=== PATIENT | male | born 1950 | race Two or more races ===

== ENCOUNTER 2018-12-12 16:12 | Inpatient (IN) | payer MEDICARE, MEDICAID ==
[~2018-12-12] VITALS: Ht 160 cm; Wt 61.2 kg
[2018-12-12] MEDS ORDERED: ESCI10TA PO (16:21)
[2018-12-12] MEDS ORDERED: TAMS-3 PO (16:21)
[2018-12-12] MEDS ORDERED: PANT20TA2 PO (16:21)
[2018-12-12] MEDS ORDERED: AMLO10TA7 PO (16:21)
[2018-12-12] MEDS ORDERED: CLOP75TA15 PO (16:21)
[2018-12-12] MEDS ORDERED: FINA5TAB11 PO (16:21)
[2018-12-12] MEDS ORDERED: ATOR40TA PO (16:21)
[2018-12-12] MEDS ORDERED: SENN-168 PO (16:21)
[2018-12-12] MEDS ORDERED: HYDR25TA4 PO (16:21)
[2018-12-12] MEDS ORDERED: DOCU-141 PO (16:21)
[2018-12-12 16:41] LABS: BASOPHILS # (AUTO) 0.1 K/uL (0.0-8.0); BASOPHILS % (AUTO) 0.8 % (0.0-2.0); EOSINOPHILS # (AUTO) 0.2 K/uL (0.0-0.7); HEMATOCRIT 38.3 % (36.7-47.1); HEMOGLOBIN 12.8 g/dL (12.5-16.3); LYMPHOCYTES # (AUTO) 1.3 K/uL (20.0-40.0); LYMPHOCYTES % (AUTO) 15.5 % (20.5-51.5); MEAN CORPUSCULAR HEMOGLOBIN 28.8 uug (23.8-33.4); MEAN CORPUSCULAR HGB CONC 33 g/dL (32.5-36.3); MEAN CORPUSCULAR VOLUME 86.3 fL (73.0-96.2); MONOCYTES # (AUTO) 0.7 K/uL (2.0-10.0); MONOCYTES % (AUTO) 8.6 % (0.0-11.0); NEUTROPHILS # (AUTO) 5.9 K/uL (1.8-8.9); NEUTROPHILS % (AUTO) 73.1 % (38.5-71.5); PLATELET COUNT (AUTO) 285 K/uL (152-348); RED BLOOD CELL COUNT(AUTO) 4.43 MIL/uL (4.06-5.63); WHITE BLOOD COUNT (AUTO) 8.1 K/uL (3.6-10.2)
[2018-12-12 16:50] LABS: CARBON DIOXIDE 30 mmol/L (21-32); CHLORIDE 105 mmol/L (98-107); GLUCOSE 99 mg/dL (74-106); POTASSIUM 3.2 mmol/L (3.5-5.1); UREA NITROGEN, BLOOD 17 mg/dL (7-18)
[2018-12-12 16:55] LABS: ETHANOL < 3 MG/DL (0-0)
[2018-12-12 17:00] LABS: ALANINE AMINOTRANSFERASE 33 U/L (16-63); ALKALINE PHOSPHATASE 76 U/L (50-136); ASPARTATE AMINOTRANSFERASE 18 U/L (15-37); BILIRUBIN,DIRECT 0.3 mg/dL (0.0-0.2); BILIRUBIN,TOTAL 0.9 mg/dL (0.2-1.0); TOTAL PROTEIN, SERUM 7.1 g/dL (6.4-8.2)
[2018-12-12 17:01] LABS: ACETAMINOPHEN < 10.0 ug/mL (10-30)
[2018-12-12 17:03] LABS: THYROID STIMULATING HORMONE 2.558 mIU/mL (0.358-3.740)
--- NOTE | 2018-12-12 17:24 | NUR ---
Pt medicllay cleared by Dr Amin, called PET director of vocational training, Reed Diego.
[2018-12-12 17:33] LABS: *BILIRUBIN,URIN NEGATIVE (NEGATIVE); *BLOOD, URINE NEGATIVE (NEGATIVE); *CLARITY,URINE CLEAR (CLEAR); *COLOR,URINE YELLOW (YELLOW); *KETONES,URINE NEGATIVE (NEGATIVE); LEUKOCYTE ESTERASE ,URINE NEGATIVE (NEGATIVE); NITRITE, URINE NEGATIVE (NEGATIVE); UGLUCOSE NEGATIVE (NEGATIVE)
[2018-12-12 17:50] LABS: *AMPHETAMINE, URINE NEGATIVE (NEGATIVE); *BARBITURATE, URINE NEGATIVE (NEGATIVE); *CANNABINOID, URINE NEGATIVE (NEGATIVE); *COCCAINE, URINE NEGATIVE (NEGATIVE); *OPIATE, URINE NEGATIVE (NEGATIVE); *PHENCYCLIDINE SCREEN,URINE NEGATIVE (NEGATIVE)
--- NOTE | 2018-12-12 17:56 | NUR ---
Reed Diego LCSW, at the bedside for Psych eval.
--- NOTE | 2018-12-12 18:30 | NUR ---
Pt placed on 5150 hold fot GD, by CINDI Diego.
--- NOTE | 2018-12-12 18:39 | NUR ---
Patient is resting comfortably in bed with eyes closed, NAD noted.
--- NOTE | 2018-12-12 20:07 | NUR ---
Pt. admitted to MHU , under care of Dr. Beauchamp/Anette. Pt on 5150 hold GD. Belongs List completed. MRSA swab done.
[2018-12-12] MEDS ORDERED: MAG HYDROX/AL HYDROX/SIMETH 30 ML LIQUID UDC PO PRN (20:30)
[2018-12-12] MEDS ORDERED: MAGNESIUM HYDROXIDE 30 ML LIQUID UDC PO PRN (20:30)
[2018-12-12] MEDS ORDERED: ACETAMINOPHEN 325 MG TABLET PO PRN (20:30)
[2018-12-12 20:35] VITALS: BP 148/61
--- NOTE | 2018-12-12 21:00 | NUR ---
Admission Note: 68 y.o. male (Mosotho speaking) brought to MHU from ER via gurney accompanied by ER staff. Pt admitted on a 5150 for GD under the care of Dr Cheema and Joseph with a dx of Psychosis. According to the 5150, the Pt, a resident of [facility], began touching staff and residents inappropriately. Pt disrobed in front of his roommates and began to masturbate. Pt has no recall of events and is a poor historian. Upon admission to the unit VS stable, denies pain. Upon face to face evaluation, Pt is pleasant, but confused, disoriented, and forgetful. A+Ox1 to Pt exhibits some sexually inappropriate behavior, as he made several attempts to go into a female room while the Pts were sleeping. After Pt was redirected away from the female room, Pt wandered back and stared at the sleeping female Pts until he was again redirected to his room and educated regarding the unit rules and expectations. Pt stated, I dont know when asked why he is here, and responded that it was June 1998 when asked the date. Affect is flat, speech is pressured, and mood is anxious and somewhat restless. Denies SI/HI/AH/VH. Pt has very poor insight and impaired judgment, and is cognitively impaired. Pt gives irrelevant non-sensical answers to assessment questions, and is unable to provide meaningful information. Paperwork co-signed with staff, Pt unable to comprehend what he is signing. With Pts permission, attempts were made to contact Pts romeo Damon and his bother Igor number was a Dr office and Mary Beth voicemail box is full. Skin assessment completed with licensed staff-skin C/D/I. Medical h/o HTN, CVA, BPH, GERD, dementia, and muscle weakness. Dr Cheema and Dr Ruiz notified of admission, meds reconciled, orders received, NKA. Pt belongings inventoried, contraband placed in unit locker. Patient Rights handbook and Advisement given to Pt, rights and unit rules/expectations explained. Pt oriented to the unit, the phone, the restrooms, and his room. Q 15 minute rounding initiated for safety. Translation provided by HENRIETTA Angulo
[2018-12-12] MEDS ORDERED: POTASSIUM CHLORIDE 20 MEQ TAB.PRT.SR PO ONE (22:30)
[2018-12-12] MEDS ORDERED: SENNOSIDES 1 TABLET PO PRN (22:45)
--- NOTE | 2018-12-12 22:45 | NUR ---
ER gave report at 1999 to charge accounts audit clerk. Pt noted to have a K+ of 3.2. ER refused to replace upon medically clearing the Pt to MHU. Dr Barahona (covering for [facility]) notified of admission and K+ level. 40 mEq K-Dur ordered and administered. AM labs ordered. Pt in no acute physical distress, will continue to monitor.
[2018-12-12] MEDS: ATORVASTATIN 40 MG TABLET PO SCH (23:31)
[2018-12-12] MEDS: AMLODIPINE 10 MG TABLET PO SCH (23:31)
[2018-12-13 07:30] VITALS: BP 126/52
[2018-12-13] MEDS: LORAZEPAM 0.5 MG TABLET PO PRN (08:48)
[2018-12-13] MEDS: FINASTERIDE 5 MG TABLET PO SCH (09:20)
[2018-12-13] MEDS: DOCUSATE SODIUM 100 MG CAPSULE PO SCH ×2 (09:20→17:00)
[2018-12-13] MEDS: TAMSULOSIN HCL 0.4 MG CAP.SR.24H PO SCH ×2 (09:20→17:00)
[2018-12-13] MEDS: HYDROCHLOROTHIAZIDE 25 MG TABLET PO SCH (09:21)
[2018-12-13] MEDS: CLOPIDOGREL 75 MG TABLET PO SCH (09:21)
[2018-12-13] MEDS: PANTOPRAZOLE SODIUM 40 MG TABLET.DR PO SCH (11:31)
[2018-12-13] MEDS: POTASSIUM CHLORIDE 10 MEQ TAB.PRT.SR PO SCH (11:31)
[2018-12-13 16:22] VITALS: BP 119/50
[2018-12-13 20:00] VITALS: BP 176/65
[2018-12-13] MEDS: AMLODIPINE 10 MG TABLET PO SCH ×2 (21:00→21:10)
[2018-12-13] MEDS: ATORVASTATIN 40 MG TABLET PO SCH ×2 (21:00→21:11)
[2018-12-13] MEDS: OXCARBAZEPINE 150 MG TABLET PO SCH ×2 (21:00→21:11)
[2018-12-13] MEDS: TEMAZEPAM 7.5 MG CAPSULE PO PRN (22:44)
[2018-12-14] MEDS: PANTOPRAZOLE SODIUM 40 MG TABLET.DR PO SCH (06:30)
--- NOTE | 2018-12-14 06:40 | NUR ---
Received Pt in his room awake. Pt is sexually inappropriate and was noted to be masturbating during assessment. Pt was asked to stop several times, but Pt refused and became irritable and agitated after being asked to stop multiple times. Pt yelled at staff in greenlandic to get out of his room, and the assessment was terminated. Resistant to care, uncooperative with staff direction, and non-compliant with HS medications. BP elevated, Pt refused BP meds, all other VS stable. No c/o pain throughout the shift.
[2018-12-14 07:30] VITALS: BP 155/46
[2018-12-14] MEDS: HYDROCHLOROTHIAZIDE 25 MG TABLET PO SCH ×2 (09:00→11:48)
[2018-12-14] MEDS: FINASTERIDE 5 MG TABLET PO SCH ×2 (09:00→11:47)
[2018-12-14] MEDS: DOCUSATE SODIUM 100 MG CAPSULE PO SCH ×3 (09:00→18:15)
[2018-12-14] MEDS: TAMSULOSIN HCL 0.4 MG CAP.SR.24H PO SCH ×3 (09:00→18:15)
[2018-12-14] MEDS: POTASSIUM CHLORIDE 10 MEQ TAB.PRT.SR PO SCH ×2 (09:00→11:48)
[2018-12-14] MEDS: OXCARBAZEPINE 150 MG TABLET PO SCH ×3 (09:00→21:00)
[2018-12-14] MEDS: CLOPIDOGREL 75 MG TABLET PO SCH ×2 (09:00→11:47)
[2018-12-14 16:00] VITALS: BP 157/64
--- NOTE | 2018-12-14 17:01 | NUR ---
Initial discharge plan: The patient is a long-term resident at [facility] [[address] [facility] [address]; ]. Per admission coordinatorGayatri at [facility] the patient may return there once ready for discharge. SW Proofreader / MHU SW will continue to collaborate with interdisciplinary team to ensure safe and proper discharge planning.
[2018-12-14 20:00] VITALS: BP 106/55
[2018-12-14] MEDS ORDERED: QUETIAPINE FUMARATE 25 MG TABLET PO SCH (20:00)
[2018-12-14] MEDS: ATORVASTATIN 40 MG TABLET PO SCH (21:00)
[2018-12-14] MEDS: AMLODIPINE 10 MG TABLET PO SCH (21:06)
[2018-12-15] MEDS: PANTOPRAZOLE SODIUM 40 MG TABLET.DR PO SCH (06:18)
[2018-12-15 07:30] VITALS: BP 163/82
[2018-12-15] MEDS: POTASSIUM CHLORIDE 10 MEQ TAB.PRT.SR PO SCH (09:03)
[2018-12-15] MEDS: HYDROCHLOROTHIAZIDE 25 MG TABLET PO SCH (09:04)
[2018-12-15] MEDS: TAMSULOSIN HCL 0.4 MG CAP.SR.24H PO SCH ×2 (09:04→18:16)
[2018-12-15] MEDS: DOCUSATE SODIUM 100 MG CAPSULE PO SCH ×2 (09:04→18:15)
[2018-12-15] MEDS: CLOPIDOGREL 75 MG TABLET PO SCH (09:04)
[2018-12-15] MEDS: OXCARBAZEPINE 150 MG TABLET PO SCH ×3 (09:04→21:00)
[2018-12-15 16:00] VITALS: BP 138/49
[2018-12-15] MEDS: QUETIAPINE FUMARATE 25 MG TABLET PO SCH ×2 (20:00→20:35)
[2018-12-15] MEDS: ATORVASTATIN 40 MG TABLET PO SCH (20:36)
[2018-12-15] MEDS: AMLODIPINE 10 MG TABLET PO SCH (20:37)
--- NOTE | 2018-12-15 22:28 | NUR ---
Patient refused to allow nail specialist to check VS. Also refused to take any medication . Multiple attempts made by different nurses. When standing close to patient , he would swing at nurse in an attempt to hit. At this time patient is quiet in his bed. Continuing to monitor patient for inappropriate behaviors .
[2018-12-16] MEDS: PANTOPRAZOLE SODIUM 40 MG TABLET.DR PO SCH (05:59)
--- NOTE | 2018-12-16 06:00 | NUR ---
Again patient is refusing to take his medication. Charge nurse tried to encourage him in South African . Patient still refused.
[2018-12-16 07:30] VITALS: BP 157/75
[2018-12-16] MEDS: TAMSULOSIN HCL 0.4 MG CAP.SR.24H PO SCH ×2 (09:43→17:21)
[2018-12-16] MEDS: CLOPIDOGREL 75 MG TABLET PO SCH (09:43)
[2018-12-16] MEDS: DOCUSATE SODIUM 100 MG CAPSULE PO SCH ×2 (09:43→17:21)
[2018-12-16] MEDS: POTASSIUM CHLORIDE 10 MEQ TAB.PRT.SR PO SCH (09:43)
[2018-12-16] MEDS: HYDROCHLOROTHIAZIDE 25 MG TABLET PO SCH (09:44)
[2018-12-16] MEDS: OXCARBAZEPINE 150 MG TABLET PO SCH ×3 (09:45→20:41)
[2018-12-16] MEDS: FINASTERIDE 5 MG TABLET PO SCH (09:45)
[2018-12-16 16:00] VITALS: BP 119/71
[2018-12-16 20:19] VITALS: BP 160/74
[2018-12-16] MEDS: ATORVASTATIN 40 MG TABLET PO SCH (20:41)
[2018-12-16] MEDS: QUETIAPINE FUMARATE 25 MG TABLET PO SCH (20:41)
[2018-12-16] MEDS: AMLODIPINE 10 MG TABLET PO SCH (20:42)
--- NOTE | 2018-12-17 03:42 | NUR ---
Patient much more compliant tonight. Took medications without any resistance. No distress noted.
[2018-12-17] MEDS: PANTOPRAZOLE SODIUM 40 MG TABLET.DR PO SCH (06:01)
[2018-12-17 07:30] VITALS: BP 109/58
[2018-12-17] MEDS: LORAZEPAM 0.5 MG TABLET PO PRN ×2 (08:42→22:20)
[2018-12-17] MEDS: OXCARBAZEPINE 150 MG TABLET PO SCH ×3 (09:06→20:15)
[2018-12-17] MEDS: DOCUSATE SODIUM 100 MG CAPSULE PO SCH ×2 (09:06→16:33)
[2018-12-17] MEDS: HYDROCHLOROTHIAZIDE 25 MG TABLET PO SCH (09:07)
[2018-12-17] MEDS: POTASSIUM CHLORIDE 10 MEQ TAB.PRT.SR PO SCH (09:07)
[2018-12-17] MEDS: TAMSULOSIN HCL 0.4 MG CAP.SR.24H PO SCH ×2 (09:07→16:33)
[2018-12-17] MEDS: CLOPIDOGREL 75 MG TABLET PO SCH (09:07)
[2018-12-17] MEDS: FINASTERIDE 5 MG TABLET PO SCH (09:09)
[2018-12-17 16:40] VITALS: BP 136/111
[2018-12-17] MEDS: QUETIAPINE FUMARATE 25 MG TABLET PO SCH (20:15)
[2018-12-17] MEDS: AMLODIPINE 10 MG TABLET PO SCH (20:15)
[2018-12-17] MEDS: ATORVASTATIN 40 MG TABLET PO SCH (20:15)
[2018-12-17 20:45] VITALS: BP 143/68
[2018-12-18] MEDS: PANTOPRAZOLE SODIUM 40 MG TABLET.DR PO SCH (06:18)
[2018-12-18 07:30] VITALS: BP 138/58
[2018-12-18] MEDS: TAMSULOSIN HCL 0.4 MG CAP.SR.24H PO SCH ×2 (09:45→16:55)
[2018-12-18] MEDS: CLOPIDOGREL 75 MG TABLET PO SCH (09:45)
[2018-12-18] MEDS: POTASSIUM CHLORIDE 10 MEQ TAB.PRT.SR PO SCH (09:45)
[2018-12-18] MEDS: OXCARBAZEPINE 150 MG TABLET PO SCH ×3 (09:45→21:33)
[2018-12-18] MEDS: FINASTERIDE 5 MG TABLET PO SCH (09:45)
[2018-12-18] MEDS: DOCUSATE SODIUM 100 MG CAPSULE PO SCH ×2 (09:45→16:55)
[2018-12-18] MEDS: HYDROCHLOROTHIAZIDE 25 MG TABLET PO SCH (09:46)
[2018-12-18] MEDS: LORAZEPAM 0.5 MG TABLET PO PRN (10:25)
--- NOTE | 2018-12-18 12:09 | NUR ---
GPS: Nursing Notes: Chemical Restraint: Patient is awake and responding to his name, impaired judgment, poor anger management, resistant with nursing care, disrobing , pulling his pant down, sexually inappropriate behavior by constantly putting his hand between his leg when his pant is down, unable to be redirected, restless behavior, trying to hit staff with fww by raising it toward staff, loud, pressured and angry speech toward staff, violent outburst without provocation, confused, paranoid behavior, talking incoherently, setting limits, redirected and reoriented during shift, but continue to be restless, Dr. Moore covering for Dr. Cheema present in the unit, ordered: Zyprexa 5mg IM STAT, medication IM given at this time, Respiration 18, continue to monitor for safety, continue with treatment plan.
[2018-12-18] MEDS ORDERED: OLANZAPINE 10 MG VIAL IM ONE (12:15)
--- NOTE | 2018-12-18 12:39 | NUR ---
GPS: Nursing Notes: Reassessment of Chemical Restraint: Patient is awake and responding to his name, resistant with nursing care, but not striking out, impaired judgment, confused, disorganized, suspicious, guarded, poor impulse control, medication IM was helpful, continue to monitor for safety, assisted with ADL's, continue to pull his pants down, but keeping his gown on, respiration 18, continue with treatment plan.
[2018-12-18 16:39] VITALS: BP 96/55
[2018-12-18 20:23] VITALS: BP 153/82
[2018-12-18] MEDS: QUETIAPINE FUMARATE 25 MG TABLET PO SCH (21:33)
[2018-12-18] MEDS: ATORVASTATIN 40 MG TABLET PO SCH (21:33)
[2018-12-18] MEDS: AMLODIPINE 10 MG TABLET PO SCH (21:35)
--- NOTE | 2018-12-18 22:44 | NUR ---
RECEIVED PATIENT LYING IN BED AND WAS RESPONSIVE TO HIS NAME.HE APPEARED SUSPICIOUS,GUARDED AND CONFUSED.HE COULD BE SEEN PICKING HIS NOSE AND SMALL AMOUNT OF BLEEDING NOTED. CLEANED AND MADE COMFORTABLE IN BED.HE TOOK HIS MEDS WITH SOME AMOUNT OF PERSUASION.COULD NOT ENGAGE IN ANY MEANINGFUL INTERACTION. FREQUENT VISUAL CHECKS MADE TO HIS ROOM FOR SAFETY. WILL CONTINUE TO MONITOR.
[2018-12-19] MEDS: PANTOPRAZOLE SODIUM 40 MG TABLET.DR PO SCH (06:22)
--- NOTE | 2018-12-19 06:37 | NUR ---
SLEPT APPROX.7;15HRS.BED BATH GIVEN AND MADE COMFORTABLE IN BED.
[2018-12-19 07:30] VITALS: BP 145/55
[2018-12-19] MEDS: OXCARBAZEPINE 150 MG TABLET PO SCH ×3 (09:58→20:37)
[2018-12-19] MEDS: POTASSIUM CHLORIDE 10 MEQ TAB.PRT.SR PO SCH (09:58)
[2018-12-19] MEDS: HYDROCHLOROTHIAZIDE 25 MG TABLET PO SCH (09:58)
[2018-12-19] MEDS: CLOPIDOGREL 75 MG TABLET PO SCH (09:58)
[2018-12-19] MEDS: FINASTERIDE 5 MG TABLET PO SCH (09:58)
[2018-12-19] MEDS: TAMSULOSIN HCL 0.4 MG CAP.SR.24H PO SCH ×2 (09:58→17:46)
[2018-12-19] MEDS: DOCUSATE SODIUM 100 MG CAPSULE PO SCH ×2 (09:58→17:46)
--- NOTE | 2018-12-19 10:44 | NUR ---
Discharge Plannin12/16/2018 color worker received phone call from Social abram Crenshaw at [facility] [ ], stating that patient's family would like him to go to a SNF in [facility]. color worker agreed to call family to discuss possibility of new SNF placement, but confirmed with Den that patient would return to [facility] if there was no other accepting facility. Den agreed. 12/19/2018: color worker called patient Marisol walters, regarding patient placement. Per Marisol, her and her family would like patient to be in a SNF closer to them which is in the [facility] area. color worker informed Marisol that this show card writer would look for new placement, but cannot guarantee that patient will be accepted to facilitates. Marisol expressed understanding and agreed to patient returning to [facility] if no other placement found. color worker then called [facility] back and spoke with Gayatri, coordinator of rehabilitation services. color worker informed Gayatri that family would like new placement for patient near [facility], but are agreeable with patient returning to [facility] if no other placement can be found. Gayatri is in agreement with plan and confirms patient will be able to return if no other placement found. color worker inquired if Den social work specialist, had already reached out to facilities in [facility]. Per Gayatri, she was unsure and stated she would have Den call this show card writer. color worker awaiting call back from Den. In the meantime, social work specialist has faxed SNF referrals to the following facilities: [facility] [[address] [place] [address]; ; regional office coordinator: Niki] [facility] [[address] [place] [address]; ; regional office coordinator: Hollie] [facility] [[address] [place] [address]; ; regional office coordinator: Carolina] color worker currently awaiting call back's from facilities on admission status. color worker also reached out to [facility] [[address] [address]; ], but was informed by Yanira, RN pilot plant supervisor, that they currently had no male bed availability. color worker reached out to [facility] [ [address] [place] [address]; ] and spoke with Marisol, healthcare receptionist, who states they currently have no male bed availability. Addendum: 12/21/18 at 1312 by MARIO HUTCHINS SW color worker followed up with the following facilities: [facility] [[address] [place] [address]; ; regional office coordinator: Niki]. Per Niki, the facility cannot accept patient due to behaviors. [facility] [[address] [place] [address]; ; regional office coordinator: Hollie]. Per Hollie, the facility cannot accept patient due to behaviors. [facility] [[address] [place] [address]; ; regional office coordinator: Carolina]. Per Carolina, facility cannot accept patient due to behaviors. color worker to follow-up with family.
--- NOTE | 2018-12-19 11:55 | NUR ---
Firearms report: disc pad knockout worker completed and submitted a [employer] firearms report for a 5250 GD certification.
[2018-12-19 16:07] VITALS: BP 131/48
[2018-12-19] MEDS: QUETIAPINE FUMARATE 25 MG TABLET PO SCH ×2 (17:46→20:37)
[2018-12-19 20:00] VITALS: BP 125/64
[2018-12-19] MEDS: AMLODIPINE 10 MG TABLET PO SCH (20:37)
[2018-12-19] MEDS: ATORVASTATIN 40 MG TABLET PO SCH (20:37)
[2018-12-20] MEDS: PANTOPRAZOLE SODIUM 40 MG TABLET.DR PO SCH (06:01)
[2018-12-20 07:30] VITALS: BP 151/51
[2018-12-20] MEDS: OXCARBAZEPINE 150 MG TABLET PO SCH ×3 (09:33→20:20)
[2018-12-20] MEDS: TAMSULOSIN HCL 0.4 MG CAP.SR.24H PO SCH ×2 (09:33→16:17)
[2018-12-20] MEDS: POTASSIUM CHLORIDE 10 MEQ TAB.PRT.SR PO SCH (09:33)
[2018-12-20] MEDS: QUETIAPINE FUMARATE 25 MG TABLET PO SCH ×3 (09:33→20:20)
[2018-12-20] MEDS: DOCUSATE SODIUM 100 MG CAPSULE PO SCH ×2 (09:33→16:17)
[2018-12-20] MEDS: CLOPIDOGREL 75 MG TABLET PO SCH (09:33)
[2018-12-20] MEDS: HYDROCHLOROTHIAZIDE 25 MG TABLET PO SCH (09:34)
[2018-12-20] MEDS: FINASTERIDE 5 MG TABLET PO SCH (09:35)
[2018-12-20 15:42] VITALS: BP 135/66
[2018-12-20] MEDS: ATORVASTATIN 40 MG TABLET PO SCH (20:20)
[2018-12-20] MEDS: AMLODIPINE 10 MG TABLET PO SCH (20:20)
[2018-12-20 20:54] VITALS: BP 149/71
[2018-12-20] MEDS: TEMAZEPAM 7.5 MG CAPSULE PO PRN (22:30)
--- NOTE | 2018-12-20 22:30 | NUR ---
PATIENT RESTLESS AND AMBULATING BACK AND FORTH IN HALLWAY, TRYING TO ESCAPE OUT THE FRONT DOOR. PATIENT REDIRECTED BACK TO ROOM AND GIVEN RESTORIL 7.5MG PO PRN FOR SLEEP. WILL CONTINUE TO MONITOR AND ASSESS.
--- NOTE | 2018-12-20 23:30 | NUR ---
PATIENT ASLEEP. BED ALARM ON. NO RESP. DISTRESS NOTED. RESTORIL EFFECTIVE. WILL CONTINUE TO MONITOR AND ASSESS.
[2018-12-21] MEDS: PANTOPRAZOLE SODIUM 40 MG TABLET.DR PO SCH (06:14)
[2018-12-21 07:30] VITALS: BP 136/60
[2018-12-21] MEDS: QUETIAPINE FUMARATE 25 MG TABLET PO SCH ×5 (08:00→20:32)
[2018-12-21] MEDS: TAMSULOSIN HCL 0.4 MG CAP.SR.24H PO SCH ×3 (09:00→16:55)
[2018-12-21] MEDS: DOCUSATE SODIUM 100 MG CAPSULE PO SCH ×3 (09:00→16:55)
[2018-12-21] MEDS: OXCARBAZEPINE 150 MG TABLET PO SCH ×4 (09:00→20:32)
[2018-12-21] MEDS: POTASSIUM CHLORIDE 10 MEQ TAB.PRT.SR PO SCH (09:23)
[2018-12-21] MEDS: CLOPIDOGREL 75 MG TABLET PO SCH (09:23)
[2018-12-21] MEDS: HYDROCHLOROTHIAZIDE 25 MG TABLET PO SCH (09:24)
[2018-12-21] MEDS: FINASTERIDE 5 MG TABLET PO SCH (09:29)
--- NOTE | 2018-12-21 11:05 | NUR ---
REFUSING TO TAKE MORNING MEDS AND PRN. SEVERAL ATTEMPTS BY MYSELF AND ONE OTHER RN.
[2018-12-21] MEDS: LORAZEPAM 0.5 MG TABLET PO PRN ×2 (15:22→21:41)
[2018-12-21 16:00] VITALS: BP 130/70
[2018-12-21 19:59] VITALS: BP 142/59
--- NOTE | 2018-12-21 20:00 | NUR ---
PATIENT ALERT TO SELF ONLY. VERY CONFUSED. DISORIENTATED AND EASILY AGITATED. WALKING UP AND DOWN HALLWAY AND STANDING AT DOOR TRYING TO ELOPE. WILL CONTINUE TO CLOSELY MONITOR AND ASSESS.
[2018-12-21] MEDS: AMLODIPINE 10 MG TABLET PO SCH (20:31)
[2018-12-21] MEDS: ATORVASTATIN 40 MG TABLET PO SCH (20:32)
--- NOTE | 2018-12-21 21:30 | NUR ---
PATIENT VERY RESTLESS. PATIENT GIVEN RESTORIL 7.5MG PO PRN FOR SLEEP. BED ALARM ON. WILL CONTINUE TO CLOSELY MONITOR.
[2018-12-21] MEDS: TEMAZEPAM 7.5 MG CAPSULE PO PRN (21:32)
[2018-12-21] MEDS ORDERED: OLANZAPINE 10 MG VIAL IM ONE (21:45)
--- NOTE | 2018-12-21 22:00 | NUR ---
PATIENT STILL AWAKE, TRYING TO GET OOB. VERY AGITATED AND EASILY AGGRESSIVE WHEN APPROACHED AND REDIRECTED. PATIENT GIVEN ATIVAN 0.5MG PO PRN. BED ALARM ON FOR SAFETY. WILL CONTINUE TO MONITOR AND ASSESS.
--- NOTE | 2018-12-21 22:30 | NUR ---
GPS: Nursing Notes: Chemical Restraint: Patient is awake with impaired judgment, poor anger management, resistant with nursing care, directed away from the door several times, unable to be redirected, patient became more aggressive with restless behavior, trying to hit staff with fww by raising it toward staff, loud, pressured and angry speech toward staff, violent outburst without provocation, confused, paranoid behavior, talking incoherently, Dr. Cuellar covering for Dr. Cheema contacted, order: Zyprexa 5mg IM STAT, medication IM administered as ordered, vital signs stable, will continue to monitor.
--- NOTE | 2018-12-22 03:42 | NUR ---
GPS: Nursing Notes: Reassessment of Chemical Restraint: Patient continued to display restless behavior, slept 30 minutes. Continue with treatment plan and observation for safety.
[2018-12-22] MEDS: PANTOPRAZOLE SODIUM 40 MG TABLET.DR PO SCH (06:08)
[2018-12-22 07:30] VITALS: BP 120/69
[2018-12-22] MEDS: OXCARBAZEPINE 150 MG TABLET PO SCH ×3 (08:16→21:00)
[2018-12-22] MEDS: DOCUSATE SODIUM 100 MG CAPSULE PO SCH ×2 (08:16→17:00)
[2018-12-22] MEDS: QUETIAPINE FUMARATE 25 MG TABLET PO SCH ×5 (08:16→21:00)
[2018-12-22] MEDS: TAMSULOSIN HCL 0.4 MG CAP.SR.24H PO SCH ×3 (08:16→17:42)
[2018-12-22] MEDS: POTASSIUM CHLORIDE 10 MEQ TAB.PRT.SR PO SCH (08:16)
[2018-12-22] MEDS: HYDROCHLOROTHIAZIDE 25 MG TABLET PO SCH (08:16)
[2018-12-22] MEDS: CLOPIDOGREL 75 MG TABLET PO SCH (08:16)
[2018-12-22] MEDS: FINASTERIDE 5 MG TABLET PO SCH (08:17)
--- NOTE | 2018-12-22 09:00 | NUR ---
Received patient in reymundo-chair, would try to get out of chair. Patient still confused and would talk to himself at times. Still needs redirection.
[2018-12-22 16:23] VITALS: BP 136/61
--- NOTE | 2018-12-22 17:20 | NUR ---
Tried to assist patient back to bed. Patient would try to get out of bed and be restless when in bed. Assisted patient back to reymundo-chair.
[2018-12-22 20:54] VITALS: BP 127/61
[2018-12-22] MEDS: AMLODIPINE 10 MG TABLET PO SCH (21:00)
[2018-12-22] MEDS: ATORVASTATIN 40 MG TABLET PO SCH (21:00)
--- NOTE | 2018-12-22 22:00 | NUR ---
received to care, up in reymundo chair, appearing sedated, non interactive, excessive salivation noted. medications were held, due to sedation, and inability to take anything by mouth, at this time. assisted to bed, without any problems. as of 2199, he appears to be asleep, in bed. no distress noted.
[2018-12-23] MEDS: PANTOPRAZOLE SODIUM 40 MG TABLET.DR PO SCH (06:31)
[2018-12-23 07:30] VITALS: BP 149/58
[2018-12-23] MEDS: DOCUSATE SODIUM 100 MG CAPSULE PO SCH ×2 (09:12→17:03)
[2018-12-23] MEDS: CLOPIDOGREL 75 MG TABLET PO SCH (09:12)
[2018-12-23] MEDS: FINASTERIDE 5 MG TABLET PO SCH (09:12)
[2018-12-23] MEDS: OXCARBAZEPINE 150 MG TABLET PO SCH ×3 (09:13→21:00)
[2018-12-23] MEDS: HYDROCHLOROTHIAZIDE 25 MG TABLET PO SCH (09:13)
[2018-12-23] MEDS: POTASSIUM CHLORIDE 10 MEQ TAB.PRT.SR PO SCH (09:16)
[2018-12-23] MEDS: TAMSULOSIN HCL 0.4 MG CAP.SR.24H PO SCH ×2 (09:28→17:03)
[2018-12-23] MEDS: QUETIAPINE FUMARATE 25 MG TABLET PO SCH ×3 (09:28→21:00)
[2018-12-23 16:00] VITALS: BP 144/65
[2018-12-23 20:00] VITALS: BP 140/61
[2018-12-23] MEDS: AMLODIPINE 10 MG TABLET PO SCH (21:00)
[2018-12-23] MEDS: ATORVASTATIN 40 MG TABLET PO SCH (21:00)
--- NOTE | 2018-12-23 22:30 | NUR ---
received to care, up in reymundo chair, appearing asleep, is arousable, but goes right back to sleep. medications were held, due to sedation, and inability to take anything by mouth, at this time. as of 2199, he appears to be asleep, in bed. no distress noted.
[2018-12-24] MEDS: QUETIAPINE FUMARATE 25 MG TABLET PO SCH ×5 (00:30→21:00)
--- NOTE | 2018-12-24 00:30 | NUR ---
pt is now awake. assisted with diaper change, fluids were given, and he took his bedtime dose of seroquel. currently lying in bed, calmly. no distress noted.
[2018-12-24] MEDS: PANTOPRAZOLE SODIUM 40 MG TABLET.DR PO SCH (06:55)
[2018-12-24 07:30] VITALS: BP 110/52
[2018-12-24] MEDS: DOCUSATE SODIUM 100 MG CAPSULE PO SCH ×2 (09:31→17:38)
[2018-12-24] MEDS: TAMSULOSIN HCL 0.4 MG CAP.SR.24H PO SCH ×2 (09:31→17:38)
[2018-12-24] MEDS: FINASTERIDE 5 MG TABLET PO SCH (09:31)
[2018-12-24] MEDS: CLOPIDOGREL 75 MG TABLET PO SCH (09:31)
[2018-12-24] MEDS: POTASSIUM CHLORIDE 10 MEQ TAB.PRT.SR PO SCH (09:31)
[2018-12-24] MEDS: OXCARBAZEPINE 150 MG TABLET PO SCH ×3 (09:31→20:29)
[2018-12-24] MEDS: HYDROCHLOROTHIAZIDE 12.5 MG CAPSULE PO SCH (09:51)
[2018-12-24 16:00] VITALS: BP 142/67
[2018-12-24 20:00] VITALS: BP 137/79
[2018-12-24] MEDS: ATORVASTATIN 40 MG TABLET PO SCH (20:29)
[2018-12-24] MEDS: AMLODIPINE 10 MG TABLET PO SCH ×2 (20:29→21:00)
[2018-12-24] MEDS: TEMAZEPAM 7.5 MG CAPSULE PO PRN (22:15)
--- NOTE | 2018-12-25 00:14 | NUR ---
GPS/NSG After HS medication administration patient was found to have placed the pills in a medicine cup. Nursing staff made several attempts to have patient comply with medication however patient refused. Stated "I am not taking anything, it making me crazy" in croatian, patient displayed pressured speech and was rubbing forearms, appeared to have high levels of anxiety. Patient exhibited paranoid behavior and barricaded himself in the room using a bed tray-table. Patient requires continuous direction, he is unable to formulate care for self. disorganized, confused, alert oriented to namer only. Will continue to monitor as well as provide a safe environment.
[2018-12-25] MEDS: PANTOPRAZOLE SODIUM 40 MG TABLET.DR PO SCH (07:00)
[2018-12-25 07:01] LABS: BASOPHILS # (AUTO) 0.1 K/uL (0.0-8.0); BASOPHILS % (AUTO) 0.7 % (0.0-2.0); EOSINOPHILS # (AUTO) 0.4 K/uL (0.0-0.7); EOSINOPHILS % (AUTO) 3.7 % (0.0-7.0); HEMATOCRIT 36.3 % (36.7-47.1); HEMOGLOBIN 12.5 g/dL (12.5-16.3); LYMPHOCYTES # (AUTO) 1.2 K/uL (20.0-40.0); LYMPHOCYTES % (AUTO) 12.3 % (20.5-51.5); MEAN CORPUSCULAR HEMOGLOBIN 29.2 uug (23.8-33.4); MEAN CORPUSCULAR HGB CONC 34 g/dL (32.5-36.3); MONOCYTES # (AUTO) 0.8 K/uL (2.0-10.0); MONOCYTES % (AUTO) 8.2 % (0.0-11.0); NEUTROPHILS # (AUTO) 7.6 K/uL (1.8-8.9); NEUTROPHILS % (AUTO) 75.1 % (38.5-71.5); PLATELET COUNT (AUTO) 360 K/uL (152-348); RED BLOOD CELL COUNT(AUTO) 4.27 MIL/uL (4.06-5.63); WHITE BLOOD COUNT (AUTO) 10.1 K/uL (3.6-10.2)
[2018-12-25 07:14] LABS: CREATININE 1.2 mg/dL (0.6-1.3); PHOSPHOROUS 3.7 mg/dL (2.5-4.9)
[2018-12-25 07:17] LABS: POTASSIUM 2.7 mmol/L (3.5-5.1)
--- NOTE | 2018-12-25 07:29 | NUR ---
NSG/GPS CRITICAL VALUE: LAB REPORTED K LEVEL OF 2.7. PHYSICIAN PAGED THROUGH EXCHANGE. WAITING FOR CALLBACK, ENDORSED TO A.M. NURSE. NO ORDER AT THIS TIME.
[2018-12-25] MEDS: OXCARBAZEPINE 150 MG TABLET PO SCH ×3 (08:44→20:28)
[2018-12-25] MEDS: FINASTERIDE 5 MG TABLET PO SCH (08:44)
[2018-12-25] MEDS: CLOPIDOGREL 75 MG TABLET PO SCH (08:44)
[2018-12-25] MEDS: POTASSIUM CHLORIDE 10 MEQ TAB.PRT.SR PO SCH (08:44)
[2018-12-25] MEDS: HYDROCHLOROTHIAZIDE 12.5 MG CAPSULE PO SCH (08:44)
[2018-12-25] MEDS: TAMSULOSIN HCL 0.4 MG CAP.SR.24H PO SCH ×2 (08:44→17:29)
[2018-12-25] MEDS: DOCUSATE SODIUM 100 MG CAPSULE PO SCH ×2 (08:44→17:30)
[2018-12-25] MEDS: QUETIAPINE FUMARATE 25 MG TABLET PO SCH ×3 (08:50→20:29)
[2018-12-25] MEDS ORDERED: POTASSIUM CHLORIDE 10 MEQ TAB.PRT.SR PO SCH (09:45)
[2018-12-25] MEDS: POTASSIUM CHLORIDE 20 MEQ TAB.PRT.SR PO SCH ×4 (10:18→22:02)
[2018-12-25 15:28] VITALS: BP 142/65
[2018-12-25 20:00] VITALS: BP 146/60
[2018-12-25] MEDS: AMLODIPINE 10 MG TABLET PO SCH (20:28)
[2018-12-25] MEDS: ATORVASTATIN 40 MG TABLET PO SCH (20:28)
[2018-12-25] MEDS ORDERED: TEMAZEPAM 7.5 MG CAPSULE PO PRN (21:45)
[2018-12-25] MEDS ORDERED: LORAZEPAM 0.5 MG TABLET PO PRN (21:45)
[2018-12-26] MEDS: PANTOPRAZOLE SODIUM 40 MG TABLET.DR PO SCH (06:22)
[2018-12-26 07:19] LABS: BASOPHILS # (AUTO) 0.1 K/uL (0.0-8.0); BASOPHILS % (AUTO) 0.8 % (0.0-2.0); EOSINOPHILS # (AUTO) 0.3 K/uL (0.0-0.7); EOSINOPHILS % (AUTO) 3.7 % (0.0-7.0); HEMATOCRIT 35.9 % (36.7-47.1); HEMOGLOBIN 12.1 g/dL (12.5-16.3); LYMPHOCYTES # (AUTO) 1.4 K/uL (20.0-40.0); LYMPHOCYTES % (AUTO) 16.5 % (20.5-51.5); MEAN CORPUSCULAR HEMOGLOBIN 28.9 uug (23.8-33.4); MEAN CORPUSCULAR HGB CONC 34 g/dL (32.5-36.3); MEAN CORPUSCULAR VOLUME 86.2 fL (73.0-96.2); MONOCYTES # (AUTO) 0.7 K/uL (2.0-10.0); MONOCYTES % (AUTO) 8.7 % (0.0-11.0); NEUTROPHILS % (AUTO) 70.3 % (38.5-71.5); PLATELET COUNT (AUTO) 386 K/uL (152-348); RED BLOOD CELL COUNT(AUTO) 4.17 MIL/uL (4.06-5.63); WHITE BLOOD COUNT (AUTO) 8.6 K/uL (3.6-10.2)
[2018-12-26 07:30] VITALS: BP 150/72
[2018-12-26 07:31] LABS: CREATININE 1.1 mg/dL (0.6-1.3); MAGNESIUM 2.1 mg/dL (1.8-2.4); PHOSPHOROUS 3.2 mg/dL (2.5-4.9); POTASSIUM 3.8 mmol/L (3.5-5.1)
[2018-12-26] MEDS: DOCUSATE SODIUM 100 MG CAPSULE PO SCH ×2 (08:18→16:23)
[2018-12-26] MEDS: TAMSULOSIN HCL 0.4 MG CAP.SR.24H PO SCH ×2 (08:18→16:23)
[2018-12-26] MEDS: CLOPIDOGREL 75 MG TABLET PO SCH (08:18)
[2018-12-26] MEDS: QUETIAPINE FUMARATE 25 MG TABLET PO SCH ×3 (08:19→20:01)
[2018-12-26] MEDS: FINASTERIDE 5 MG TABLET PO SCH (08:19)
[2018-12-26] MEDS: OXCARBAZEPINE 150 MG TABLET PO SCH ×3 (08:19→20:02)
[2018-12-26] MEDS ORDERED: POTASSIUM CHLORIDE 10 MEQ TAB.PRT.SR PO SCH (09:00)
[2018-12-26 16:00] VITALS: BP 160/80
--- NOTE | 2018-12-26 16:12 | NUR ---
GPS:Received report that patient was showering and was found in bathroom, patient remains alert and oriented to person and knows he is in hospital, remains confused and disoriented to place and situation, patient ambulating without difficulty, states he slipped while showering. patient states that right side of his face hurts/cheek area and rib on right side when reassessing then patient reports that left side of face hurts, patient vital signs 160/80, hr 104, RR 18, 02 sat 99%, reports pain is 8 out of 10. [facility] Nephrology paged to reach Dr Amaral, left message with exchange. Addendum: 12/26/18 at 1658 by NICOLETTE MEDEIROS RN patient found sitting on shower floor next to exiting door, Found by Marcin Palomino RN.
[2018-12-26 16:20] VITALS: BP 144/64
--- NOTE | 2018-12-26 16:22 | NUR ---
GPS/RN- patient remains alert and oriented to self and hospital no altered mental status from baseline from this am, patient v/s 144/64, HR 89, patient sitting up in chair next to nursing station. continue to monitor
--- NOTE | 2018-12-26 16:24 | NUR ---
GPS/RN- 1700 meds , patient status post fall, unsafe to administer at this time. continue to monitor mental status.
--- NOTE | 2018-12-26 16:42 | NUR ---
GPS/RN- Patient noted massaging right wrist, reporting discomfort.
--- NOTE | 2018-12-26 16:44 | NUR ---
GPS/RN- Received call from Ashley from Dr Amaral office, per MD lovelace to ordering imaging.
[2018-12-26 16:50] VITALS: BP 127/77
--- NOTE | 2018-12-26 16:50 | NUR ---
GPS/RN- Patient remains alert and oriented x2 (person, knows its a hospital), patient remains responsive sitting up in chair next to nursing station, B/P 127/77, HR 86. patient able to answer basic commands, no AMS from baseline this am.
--- NOTE | 2018-12-26 17:02 | NUR ---
GPS/RN- patient complaining of left wrist pain now. imaging orders patient with Dementia unable to determine if this pain is previous to fall and/or arthritic. imaging ordered per MD
[2018-12-26] MEDS: ATORVASTATIN 40 MG TABLET PO SCH (20:01)
[2018-12-26] MEDS: AMLODIPINE 10 MG TABLET PO SCH (20:02)
[2018-12-26 20:24] VITALS: BP 141/75
[2018-12-27] MEDS: PANTOPRAZOLE SODIUM 40 MG TABLET.DR PO SCH (06:10)
--- NOTE | 2018-12-27 06:28 | NUR ---
GPS: Nursing Notes: Hours of Sleep: Patient slept 5 hours and 30 minutes.
[2018-12-27 07:30] VITALS: BP 163/59
--- NOTE | 2018-12-27 08:20 | NUR ---
DC Note: Patient will be discharged to [facility] [[address] [address]; ] via ambulance at 10am. Spoke with Karen at the facility who states they are ready to accept the patient today. Spoke with patients Marisol walters ([phone]) who is aware and agreeable with discharge plans. Patient is alert and oriented x1 and is calm and cooperative. Patient will follow-up at the facility with Dr. Arango (Cataract Lens Generator) and Dr. Cuellar (Psychiatrist). Patient was provided with outpatient mental health referrals to [facility] , [facility] , and the National Suicide Prevention Lifeline .
[2018-12-27] MEDS: OXCARBAZEPINE 150 MG TABLET PO SCH ×2 (09:37→13:15)
[2018-12-27] MEDS: QUETIAPINE FUMARATE 25 MG TABLET PO SCH (09:37)
[2018-12-27] MEDS: FINASTERIDE 5 MG TABLET PO SCH (09:37)
[2018-12-27] MEDS: DOCUSATE SODIUM 100 MG CAPSULE PO SCH (09:37)
[2018-12-27] MEDS: CLOPIDOGREL 75 MG TABLET PO SCH (09:37)
[2018-12-27] MEDS: TAMSULOSIN HCL 0.4 MG CAP.SR.24H PO SCH (09:37)
== END 2018-12-27 13:30 | DRG 885 ==
LOC: ER 16:14 → GPS 20:20
PROVIDERS: ADMIT Psychiatry & Neurology Psychosomatic Medicine; ATTEND Internal Medicine
DX: F29 Unspecified psychosis not due to a substance or known physiological condition (principal); F01.51 Vascular dementia, unspecified severity, with behavioral disturbance; E78.5 Hyperlipidemia, unspecified; I11.9 Hypertensive heart disease without heart failure; Z86.73 Personal history of transient ischemic attack (TIA), and cerebral infarction without residual deficits; F41.9 Anxiety disorder, unspecified; N40.0 Benign prostatic hyperplasia without lower urinary tract symptoms; Z79.899 Other long term (current) drug therapy; Z79.02 Long term (current) use of antithrombotics/antiplatelets; F42.9 Obsessive-compulsive disorder, unspecified; K21.9 Gastro-esophageal reflux disease without esophagitis; M19.90 Unspecified osteoarthritis, unspecified site; E87.6 Hypokalemia
CPT/HCPCS: 36415; 70030-TC; 70450; 70486; 71045; 73110; 80307; 83605; 83735; 84100; 84443; 85025; 85730; 87040; 87086; 93005; 97110; 97116; 97530; A4663; G0480; G0480-TC; J2358

== ENCOUNTER 2019-10-11 16:28 | Inpatient (IN) | payer MEDICARE, OTHER ==
[~2019-10-11] VITALS: Ht 167.6 cm; Wt 62.1 kg
[2019-10-11 18:15] LABS: BASOPHILS # (AUTO) 0.1 K/uL (0.0-8.0); EOSINOPHILS # (AUTO) 0.2 K/uL (0.0-0.7); EOSINOPHILS % (AUTO) 1.9 % (0.0-7.0); HEMATOCRIT 38.3 % (36.7-47.1); HEMOGLOBIN 12.6 g/dL (12.5-16.3); LYMPHOCYTES # (AUTO) 1.4 K/uL (20.0-40.0); LYMPHOCYTES % (AUTO) 14.2 % (20.5-51.5); MEAN CORPUSCULAR HEMOGLOBIN 28.4 uug (23.8-33.4); MEAN CORPUSCULAR HGB CONC 33 g/dL (32.5-36.3); MEAN CORPUSCULAR VOLUME 86.1 fL (73.0-96.2); MONOCYTES # (AUTO) 0.9 K/uL (2.0-10.0); MONOCYTES % (AUTO) 9.4 % (0.0-11.0); NEUTROPHILS # (AUTO) 7.3 K/uL (1.8-8.9); NEUTROPHILS % (AUTO) 73.5 % (38.5-71.5); PLATELET COUNT (AUTO) 301 K/uL (152-348); RED BLOOD CELL COUNT(AUTO) 4.45 MIL/uL (4.06-5.63); WHITE BLOOD COUNT (AUTO) 9.9 K/uL (3.6-10.2)
--- NOTE | 2019-10-11 18:18 | NUR ---
PATIENT WAS SEEN BY MD. PATIENT IS RESTING. AWAITING TEST RESULTS.
--- NOTE | 2019-10-11 18:22 | NUR ---
SITTER/OBSERVER AT BEDSIDE.
[2019-10-11 18:25] LABS: CARBON DIOXIDE 29 mmol/L (21-32); CHLORIDE 108 mmol/L (98-107); GLUCOSE 97 mg/dL (74-106); POTASSIUM 3.7 mmol/L (3.5-5.1); UREA NITROGEN, BLOOD 31 mg/dL (7-18)
[2019-10-11 18:26] LABS: ETHANOL < 3 MG/DL (0-0)
[2019-10-11 18:30] LABS: ALANINE AMINOTRANSFERASE 14 U/L (16-63); ALKALINE PHOSPHATASE 77 U/L (50-136); ASPARTATE AMINOTRANSFERASE 15 U/L (15-37); BILIRUBIN,DIRECT 0.1 mg/dL (0.0-0.2); BILIRUBIN,TOTAL 0.2 mg/dL (0.2-1.0)
[2019-10-11 18:31] LABS: ACETAMINOPHEN < 2.0 ug/mL (10-30)
--- NOTE | 2019-10-11 18:42 | NUR ---
PATIENT SPEECH IS MUMBLING AND NO CLEAR WORDS ARE ARTICULATED
--- NOTE | 2019-10-11 19:22 | NUR ---
HAND OFF REPORT GIVEN TO SARAH DOOLEY
--- NOTE | 2019-10-11 19:30 | NUR ---
1:1 sitter at bedside for safety. Pt provided urine and sent to lab. Safe environment implemented. Pending medical clearance.
[2019-10-11 19:35] LABS: *BILIRUBIN,URIN NEGATIVE (NEGATIVE); *BLOOD, URINE NEGATIVE (NEGATIVE); *CLARITY,URINE CLEAR (CLEAR); *COLOR,URINE YELLOW (YELLOW); *KETONES,URINE NEGATIVE (NEGATIVE); *UROBILINOGEN,URINE 0.2 E.U./dl (NORMAL); LEUKOCYTE ESTERASE ,URINE NEGATIVE (NEGATIVE); NITRITE, URINE NEGATIVE (NEGATIVE); PH,URINE 5.5 (5.0-8.0); UGLUCOSE NEGATIVE (NEGATIVE)
[2019-10-11 19:37] LABS: BACTERIA,URINE NONE SEEN /HPF (NONE SEEN); RBC,URINE 0-3 /HPF (0-3); SQUAMOUS EPITHELIAL CELL,UR FEW /HPF (NONE SEEN); WBC,URINE 0-3 /HPF (0-3)
[2019-10-11 19:48] LABS: *AMPHETAMINE, URINE NEGATIVE (NEGATIVE); *BARBITURATE, URINE NEGATIVE (NEGATIVE); *CANNABINOID, URINE NEGATIVE (NEGATIVE); *COCCAINE, URINE NEGATIVE (NEGATIVE); *OPIATE, URINE NEGATIVE (NEGATIVE); *PHENCYCLIDINE SCREEN,URINE NEGATIVE (NEGATIVE)
--- NOTE | 2019-10-11 20:52 | NUR ---
Pt is confused and anxious, frequent reorientation. 1:1 sitter at bedside.
--- NOTE | 2019-10-11 21:02 | NUR ---
Reed Diego (speech and language clinician) here for evaluation of patient.
--- NOTE | 2019-10-11 21:16 | NUR ---
Pt placed on a 5150 by Reed Diego for DTO/GD.
[2019-10-11] MEDS ORDERED: OLANZAPINE 5 MG TABLET ONE (21:33)
--- NOTE | 2019-10-11 21:45 | NUR ---
Pt confused and combative towards staff, received orders to administer Zyprexa 10 mg IM
[2019-10-11] MEDS ORDERED: OLANZAPINE 10 MG VIAL IM ONE ×2 (21:51→22:00)
--- NOTE | 2019-10-11 22:14 | NUR ---
Report given to receiving RN in GPS unit. Pt. admitted to GPS , under care of Dr. Cuellar Belongs List completed
[2019-10-11] MEDS ORDERED: MAG HYDROX/AL HYDROX/SIMETH 30 ML LIQUID UDC PO PRN (23:00)
[2019-10-11] MEDS ORDERED: ACETAMINOPHEN 325 MG TABLET PO PRN (23:00)
[2019-10-11] MEDS ORDERED: MAGNESIUM HYDROXIDE 30 ML LIQUID UDC PO PRN (23:00)
[2019-10-11] MEDS ORDERED: BLOOD SUGAR DIAGNOSTIC 1 EACH STRIP VI ONE (23:00)
[2019-10-11] MEDS ORDERED: ZOLPIDEM 5 MG TABLET PO PRN (23:00)
--- NOTE | 2019-10-11 23:30 | NUR ---
GPS ADMISSION NOTE: AT APPROX 2225, ADMITTED 69 YEARS OLD MALE FROM [facility] ER TO [facility] MHU ON A 5150 FOR GD AND DTO. PER HOLD, PAT[facility] L[facility]. HE WAS SENT TO [facility] ER D/T HIS COMBATIVENESS, REFUSING CARE AND STRIKING OUT AT STAFF. WHILE IN THE ER, PATIENT WAS OBSERVED STRIKING AT STAFF. PATIENT ALSO STATED THAT HE IS IN "PRISON" AND HE CONTINUE STRIKING AT STAFF. HOLD WILL BE DONE ON 10/14/2019 AT 2115. UPON ADMISSION, PATIENT NOTED CONFUSED, DISORGANIZED SPEECH, UNCOOPERATIVE, COMBATIVE AND AGGRESSIVE TOWARD STAFF ATTEMPTING TO PROVIDED CARE. (PATIENT HAD ZYPREXA 10MG IM WHILE IN THE ER PRIOR TO ADMISSION TO MHU) PATIENT UNABLE TO HAVE A MEANINGFUL CONVERSATION. FACE TO FACE ASSESSMENT DONE, PATIENT REFLECT WHAT IS WRITTEN ON THE HOLD. NOTE CONFUSED. PATIENT'S RIGHT FOR MENTAL HEALTH BOOKLET WAS GIVEN TO PATIENT IN STATELESS WELL HIS ADVISEMENT. PATIENT IS UNDER THE CARE OF DR GREER. WILL CONTINUE WITH Q15 MIN CHECKS.
--- NOTE | 2019-10-12 06:50 | NUR ---
GPS NURSING NOTES: PATIENT SLEPT FOR APPROX 6.30 HRS THROUGH THE NIGHT. HE CONTINUE RESTING COMFORTABLE IN HIS BED; HOWEVER, PT GETS EASILY IRRITABLE WHEN GIVEN CARE. WILL CONTINUE TO MONITOR.
[2019-10-12 07:30] VITALS: BP 190/77
[2019-10-12 08:07] LABS: BILIRUBIN,TOTAL 0.5 mg/dL (0.2-1.0); CREATININE 0.9 mg/dL (0.6-1.3); POTASSIUM 3.9 mmol/L (3.5-5.1); TOTAL PROTEIN, SERUM 6.7 g/dL (6.4-8.2)
[2019-10-12] MEDS: LORAZEPAM 1 MG TABLET PO PRN ×3 (09:12→22:35)
--- NOTE | 2019-10-12 09:16 | NUR ---
Received patient in bed. Combative with staff during am care. Up to reymundo chair for safety. Patient refusing to take medications and is trying to kick nurse. Also noted to be banging on table and yelling. Continuing to keep patient safe at this time. Will notify patients Doctors of behavior.
--- NOTE | 2019-10-12 10:21 | NUR ---
Social Work Note/Family Contact: dietary worker attempted to call patients brothnohemi Puckett ([phone]) but was unable to reach and did not have a voicemail set up. dietary worker attempted to contacted Liz ([phone]) who is patients sister in law to gather collateral. This curriculum writer explained patients treatment plan and discharge plan.
--- NOTE | 2019-10-12 10:21 | NUR ---
Social Work Note/Initial Discharge Plan: Patient currently resides at [facility] [address] [place] [address]; ([phone]). This proposal lead writer spoke with Kahlil knowles who stated that patient is welcomed back upon discharge. reel worker will work with the pt and the MD regarding appropriate discharge planning. reel worker will form a safe and proper discharge.
[2019-10-12 12:00] VITALS: BP 181/83
--- NOTE | 2019-10-12 13:21 | NUR ---
F/U DR. SAMIR HERNANDEZ REGARDING NEW PATIENT ADMITTED LAST NIGHT NEED MEDICATION TO BE RECONCILED. ALSO INFORMED THAT PATIENT B/P ELEVATED, LATEST B/P1.AWAITING FOR MD TO RETURN CALL.
[2019-10-12] MEDS ORDERED: CLONIDINE-TTS 1 PATCH TD SCH (14:00)
--- NOTE | 2019-10-12 14:02 | NUR ---
Dr. Quiñones returned call with order of clonidine 0.1 q week- order carried out.
[2019-10-12] MEDS: QUETIAPINE FUMARATE 25 MG TABLET PO SCH ×3 (15:17→20:07)
[2019-10-12 16:00] VITALS: BP 151/123
[2019-10-12] MEDS ORDERED: MAG HYDROX/AL HYDROX/SIMETH 30 ML LIQUID UDC PO PRN (16:00)
[2019-10-12] MEDS ORDERED: FLEET ENEMA 133 ML BOTTLE RC PRN (16:00)
[2019-10-12] MEDS ORDERED: ACETAMINOPHEN 325 MG TABLET PO PRN (16:00)
[2019-10-12] MEDS ORDERED: BISACODYL 10 MG SUPP.RECT RC PRN (16:00)
[2019-10-12] MEDS: DOCUSATE SODIUM 100 MG CAPSULE PO SCH (17:24)
[2019-10-12] MEDS: OXCARBAZEPINE 150 MG TABLET PO SCH (17:24)
--- NOTE | 2019-10-12 17:46 | NUR ---
Dr. Cuellar in to see patient earlier. The Doctor spoke to patient and patient has been medication compliant since. B/p being controlled by a patch at this time. Medications are reconciled and patient medicated for anxiety. No acute distress or behavior issues at this time.
[2019-10-12 18:19] VITALS: BP 151/123
[2019-10-12] MEDS: TAMSULOSIN HCL 0.4 MG CAP.SR.24H PO SCH (20:08)
[2019-10-12] MEDS: AMLODIPINE 10 MG TABLET PO SCH (20:10)
[2019-10-12 20:30] VITALS: BP 173/78
--- NOTE | 2019-10-12 20:30 | NUR ---
RECEIVED PATIENT IN THE HALLWAY SITTING IN A NICOLLE CHAIR CLOSED TO THE NURSING STATION. HE IS NOTED A/O X1 CONFUSED. HE IS ABLE TO AMBULATE WITH ASSISTANCE BY ONE STAFF. HE PRESENTS WITH LABILE MOOD, BLUNTED AFFECT. UNABLE TO HAVE A MEANINGFUL CONVERSATION. HOWEVER, NO AGGRESSIVE BX NOTED AT THIS TIME. PATIENT ABLE TO COMPLY WITH MEDICATION REGIMENT AT THIS TIME. B/P NOTED ELEVATED, ROUTINE QHS B/P MEDICATION GIVEN. SAFETY AND FALL PRECAUTION IN PLACE. WILL CONTINUE TO MONITOR.
[2019-10-12] MEDS ORDERED: CLONIDINE TTS 2 PATCH TD ONE (22:34)
[2019-10-12] MEDS: CLONIDINE TTS 2 PATCH TD SCH (22:45)
--- NOTE | 2019-10-12 22:45 | NUR ---
PATIENT NOTED RESTLESS, GETTING OUT IF HIS BED, CONFUSED, DISORGANIZED SPEECH. ATIVAN 1MG PO PRN WAS GIVEN. B/P WAS RECHECKED: 141/72MMHG. NEW ORDER WAS GIVEN TO ADMINISTER CATAPRES 0.2MG TOPICAL. ORDER NOTED AND CARRIED OUT. PREVIOUS ORDER (CATAPRES 0.1MG TOPICAL) WAS REMOVED AND DISCARDED. WILL CONTINUE TO MONITOR.
[2019-10-12 22:49] VITALS: BP 141/72
[2019-10-13] MEDS: PANTOPRAZOLE SODIUM 40 MG TABLET.DR PO SCH (06:58)
[2019-10-13 07:30] VITALS: BP 152/69
[2019-10-13] MEDS: CLOPIDOGREL 75 MG TABLET PO SCH (10:52)
[2019-10-13] MEDS: DOCUSATE SODIUM 100 MG CAPSULE PO SCH ×2 (10:53→18:46)
[2019-10-13] MEDS: FINASTERIDE 5 MG TABLET PO SCH (10:54)
[2019-10-13] MEDS: QUETIAPINE FUMARATE 25 MG TABLET PO SCH ×4 (10:54→20:23)
[2019-10-13] MEDS: TAMSULOSIN HCL 0.4 MG CAP.SR.24H PO SCH ×2 (10:55→20:23)
[2019-10-13] MEDS: OXCARBAZEPINE 150 MG TABLET PO SCH ×3 (10:56→18:42)
[2019-10-13 16:00] VITALS: BP 144/73
[2019-10-13] MEDS: AMLODIPINE 10 MG TABLET PO SCH (20:23)
[2019-10-13 20:54] VITALS: BP 141/66
--- NOTE | 2019-10-13 21:00 | NUR ---
RECEIVED PATIENT IN THE HALLWAY SITTING IN A NICOLLE CHAIR. HE IS NOTED A/O X1, CALM AND PLEASANT UPON APPROACHED. PATIENT ABLE TO COMPLY WITH MEDICATION REGIMENT AND COMPLIANT WITH CARE AND ADLs AT THIS TIME. SAFETY AND FALL PRECAUTION IN PLACE. PATIENT IN REASSURED FOR HIS SAFETY. V/S STABLE, WILL CONTINUE TO MONITOR.
[2019-10-14] MEDS: PANTOPRAZOLE SODIUM 40 MG TABLET.DR PO SCH (07:02)
[2019-10-14 07:30] VITALS: BP 130/54
[2019-10-14] MEDS: QUETIAPINE FUMARATE 25 MG TABLET PO SCH ×4 (08:36→20:15)
[2019-10-14] MEDS: TAMSULOSIN HCL 0.4 MG CAP.SR.24H PO SCH ×2 (08:36→20:15)
[2019-10-14] MEDS: DOCUSATE SODIUM 100 MG CAPSULE PO SCH ×2 (08:36→18:05)
[2019-10-14] MEDS: OXCARBAZEPINE 150 MG TABLET PO SCH ×3 (08:36→18:06)
[2019-10-14] MEDS: FINASTERIDE 5 MG TABLET PO SCH (08:36)
[2019-10-14] MEDS: CLOPIDOGREL 75 MG TABLET PO SCH (08:36)
[2019-10-14 15:22] VITALS: BP 144/53
[2019-10-14] MEDS: LORAZEPAM 1 MG TABLET PO PRN (19:44)
[2019-10-14] MEDS: AMLODIPINE 10 MG TABLET PO SCH (20:15)
[2019-10-14 20:22] VITALS: BP 178/72
[2019-10-14 21:30] VITALS: BP 146/69
[2019-10-15] MEDS: PANTOPRAZOLE SODIUM 40 MG TABLET.DR PO SCH (06:33)
--- NOTE | 2019-10-15 06:34 | NUR ---
Received Pt in the hallway sitting in a reymundo chair. A+Ox1 to himself only, presents as confused, disorganized, and disoriented. Attempts to slide out of chair despite instructions and education provided for safety. Easily agitated, noted to pound on the tables and ng when frustrated, exhibits difficulty expressing his needs. Anxious and labile, Ativan 1mg administered with good effect. Compliant with medications, somewhat resistant to care, redirection and reality orientation provided as needed. Denies pain, elevated BP controlled with Norvasc, stable on re-check. Denies any s/s of HTN. All other VS stable.
[2019-10-15 07:30] VITALS: BP 169/71
[2019-10-15] MEDS: QUETIAPINE FUMARATE 25 MG TABLET PO SCH ×4 (08:39→20:22)
[2019-10-15] MEDS: DOCUSATE SODIUM 100 MG CAPSULE PO SCH ×2 (08:39→17:06)
[2019-10-15] MEDS: OXCARBAZEPINE 150 MG TABLET PO SCH ×3 (08:39→17:06)
[2019-10-15] MEDS: TAMSULOSIN HCL 0.4 MG CAP.SR.24H PO SCH ×2 (08:39→20:21)
[2019-10-15] MEDS: FINASTERIDE 5 MG TABLET PO SCH (08:39)
[2019-10-15] MEDS: CLOPIDOGREL 75 MG TABLET PO SCH (08:39)
--- NOTE | 2019-10-15 08:48 | NUR ---
Patient angry and irritable this am. Assist to bathroom and assisted with ambulation in the hallway. Patient refused to take medications and attempted to throw coffee at this nurse. Very combative, striking out at others providing care. Labile mood . Continuing to monitor for safety of the patient and the staff.
[2019-10-15] MEDS ORDERED: HALOPERIDOL LACTATE 5 MG/1 ML VIAL IM ONE (09:15)
[2019-10-15] MEDS ORDERED: LORAZEPAM 2 MG/1 ML VIAL IM ONE (09:15)
[2019-10-15] MEDS ORDERED: diphenhydrAMINE 50 MG/1 ML VIAL IM ONE (09:15)
--- NOTE | 2019-10-15 09:41 | NUR ---
Patient continues to be agitated and combative with staff. Banging on table and cursing. Dr. Grover notified of escalating behavior and orders received for IM injection. Patient ambulated to bathroom then put in bed. IM given with assistance. Patient remained combative and was trying to kick staff. Noted to be banging on side rails. Bed locked and in lowest position. Bed alarm on. Patient being monitored for safety. Frequent rounding done. Encouraging patient to be calm and relax. VS stable.
[2019-10-15 09:46] VITALS: BP_SYST 146; BP_SYST 169; BP_DIAS 69; BP_DIAS 71
--- NOTE | 2019-10-15 11:56 | NUR ---
Attempted to take patients VS. Patient became combative and tried to hit nurse. Will try again later.
--- NOTE | 2019-10-15 15:25 | NUR ---
VS were checked and are within normal limits at this time. Family visiting patient. Patient found asleep, but easy to arouse and talking with brother Plan to get patient in chair for dinner. No acute distress or combativeness . Patient refused medications at lunch. Will attempt to give oral medications ordered at dinner. Monitoring for escalation in behavior.
[2019-10-15 15:35] VITALS: BP 108/64
--- NOTE | 2019-10-15 17:09 | NUR ---
Patient up in chair at this time for dinner. Compliant with medications this evening, far less combative. Continuing to keep patient safe and monitor for behavior escalation.
[2019-10-15] MEDS: LORAZEPAM 1 MG TABLET PO PRN (19:31)
[2019-10-15 20:11] VITALS: BP 155/78
[2019-10-15] MEDS: AMLODIPINE 10 MG TABLET PO SCH (20:22)
--- NOTE | 2019-10-16 02:00 | NUR ---
Social Work Note/Individual Therapy: conduit worker met with patient for brief counseling to address patients aggressive and combative behavior. Patient is not cooperative with this clinical writer. Patient has been physically aggressive towards staff. This clinical writer was unable to have a meaningful conversation with this patient.
[2019-10-16] MEDS: PANTOPRAZOLE SODIUM 40 MG TABLET.DR PO SCH (06:26)
[2019-10-16 07:30] VITALS: BP 108/57
[2019-10-16] MEDS: CLOPIDOGREL 75 MG TABLET PO SCH (08:27)
[2019-10-16] MEDS: QUETIAPINE FUMARATE 25 MG TABLET PO SCH ×4 (08:27→20:50)
[2019-10-16] MEDS: TAMSULOSIN HCL 0.4 MG CAP.SR.24H PO SCH ×2 (08:27→20:58)
[2019-10-16] MEDS: OXCARBAZEPINE 150 MG TABLET PO SCH ×3 (08:27→17:06)
[2019-10-16] MEDS: LORAZEPAM 1 MG TABLET PO PRN ×2 (08:27→19:34)
[2019-10-16] MEDS: DOCUSATE SODIUM 100 MG CAPSULE PO SCH ×2 (08:27→17:06)
[2019-10-16] MEDS: FINASTERIDE 5 MG TABLET PO SCH (08:29)
--- NOTE | 2019-10-16 14:50 | NUR ---
GPS: Nursing Notes: Destructive Behavior Toward Others: Patient is awake and responding to his name, impaired judgment, poor insight, disoriented, poor anger management, resistant with nursing care, loud and angry affect at times, unkempt appearance, verbal abusive at times, redirected and reoriented during shift, banging on the table at times, episodes of clenching his fists toward staff when assisting him with ADL's, unable to formulate a plan for self care, continue with treatment plan.
[2019-10-16 15:27] VITALS: BP 138/62
[2019-10-16 20:00] VITALS: BP 159/70
[2019-10-16] MEDS: AMLODIPINE 10 MG TABLET PO SCH (20:51)
[2019-10-17] MEDS: PANTOPRAZOLE SODIUM 40 MG TABLET.DR PO SCH (06:19)
--- NOTE | 2019-10-17 06:30 | NUR ---
Nursing Note: Received Pt in the hallway sitting in a reymundo chair. A+Ox1 to himself only, presents as confused, disorganized, and disoriented. Compliant with VS only after encouragement and prompting. Periodically pounds on the tables and ng, and requires redirection. Noted to have episodes of inserting his finger into his nose and picking until it bleeds. Pt on Plavix, bleeding precautions and education reinforced. Anxious and labile, Ativan 1mg administered with good effect early in the shift. Compliant with medications, remains resistant to care, redirection and reality orientation provided as needed. BP 159/70, Norvasc 10mg administered, 146/72 upon re check, all other VS stable. Denies pain. Large BM x1 this AM.
[2019-10-17 07:48] VITALS: BP 121/60
[2019-10-17 07:52] VITALS: BP 137/65
[2019-10-17] MEDS: TAMSULOSIN HCL 0.4 MG CAP.SR.24H PO SCH ×2 (08:13→20:53)
[2019-10-17] MEDS: FINASTERIDE 5 MG TABLET PO SCH (08:13)
[2019-10-17] MEDS: CLOPIDOGREL 75 MG TABLET PO SCH (08:14)
[2019-10-17] MEDS: DOCUSATE SODIUM 100 MG CAPSULE PO SCH ×2 (08:14→16:50)
[2019-10-17] MEDS: OXCARBAZEPINE 150 MG TABLET PO SCH ×3 (08:14→16:50)
[2019-10-17] MEDS: QUETIAPINE FUMARATE 25 MG TABLET PO SCH ×4 (08:14→20:23)
[2019-10-17] MEDS: LORAZEPAM 1 MG TABLET PO PRN ×2 (10:06→21:29)
[2019-10-17 15:29] VITALS: BP 144/68
[2019-10-17] MEDS: AMLODIPINE 10 MG TABLET PO SCH (20:53)
--- NOTE | 2019-10-17 20:55 | NUR ---
RECEIVED PATIENT IN THE HALLWAY SITTING IN A JYOTI CHAIR CLOSE TO THE NURSING STATION. HE IS NOTED A/O X 1 CONFUSED, DISORGANIZED SPEECH, UNABLE TO HAVE A MEANINGFUL CONVERSATION. NO AGGRESSIVE COMBATIVE NOTED AT THIS TIME; HOWEVER, PATIENT NOTED RESTLESS. INITIALLY, HE REFUSED SOME OF HIS MEDICATIONS BUT HE ENDED UP TAKING ALL HIS QHS MEDICATION AFTER FEW REDIRECTIONS. V/S: B/P NOTED 177/76MMHG AND PULSE 85BPM. NORVASC 10MG PO QHS WAS GIVEN. SAFETY AND FALL PRECAUTION IN PLACE. WILL CONTINUE TO MONITOR CLOSELY.
[2019-10-17 21:25] VITALS: BP 177/76
--- NOTE | 2019-10-17 21:50 | NUR ---
B/P WAS RECHECKED. 159/74MMHG AND PULSE 89BPM. PATIENT ALSO HAS CATAPRES 0.2MG TOPICAL/PATCH ON LEFT UPPER BACK IN PLACE. WILL CONTINUE TO MONITOR.
[2019-10-17 21:51] VITALS: BP 159/74
[2019-10-18] MEDS: PANTOPRAZOLE SODIUM 40 MG TABLET.DR PO SCH (07:12)
[2019-10-18 07:30] VITALS: BP 120/54
[2019-10-18] MEDS: QUETIAPINE FUMARATE 25 MG TABLET PO SCH ×4 (08:52→20:36)
[2019-10-18] MEDS: OXCARBAZEPINE 150 MG TABLET PO SCH ×3 (08:52→17:42)
[2019-10-18] MEDS: FINASTERIDE 5 MG TABLET PO SCH (08:52)
[2019-10-18] MEDS: CLOPIDOGREL 75 MG TABLET PO SCH (08:52)
[2019-10-18] MEDS: DOCUSATE SODIUM 100 MG CAPSULE PO SCH ×2 (08:52→17:41)
[2019-10-18] MEDS: TAMSULOSIN HCL 0.4 MG CAP.SR.24H PO SCH ×2 (08:52→20:35)
[2019-10-18 16:00] VITALS: BP 151/55
[2019-10-18 20:00] VITALS: BP 151/76
[2019-10-18] MEDS: AMLODIPINE 10 MG TABLET PO SCH (20:35)
--- NOTE | 2019-10-18 20:45 | NUR ---
Received patient in the hallway, Pt remains confused. Pt was not compliant with medication. No sign or symptom of resp. distress, breathing even, unlabored. No indication of pain or discomfort. Will continue to monitor patient for safety.
--- NOTE | 2019-10-18 20:55 | NUR ---
Patient was combative, tries to hit staff, uncooperative, disorganized, yelling, throwing pillow, banging on the wall and disrupting other patient. Informed Dr. Cuellar. Received new order zyprexa IM 10 mg. x 1 now. Orders noted and carried out.
[2019-10-18] MEDS ORDERED: OLANZAPINE 10 MG VIAL IM STA (20:57)
--- NOTE | 2019-10-19 02:04 | NUR ---
Social Work Note/Individual Therapy: distillery worker met with patient for brief counseling to address patients aggressive and combative behavior. Patient is not cooperative with this sba underwriter. Patient has been physically aggressive towards staff he has been yelling, throwing his pillow, and has been uncooperative. This sba underwriter was unable to have a meaningful conversation with this patient and is unable to have proper eye contact.
[2019-10-19] MEDS: PANTOPRAZOLE SODIUM 40 MG TABLET.DR PO SCH (06:10)
[2019-10-19 07:30] VITALS: BP 166/67
[2019-10-19] MEDS: QUETIAPINE FUMARATE 25 MG TABLET PO SCH (09:00)
[2019-10-19] MEDS: TAMSULOSIN HCL 0.4 MG CAP.SR.24H PO SCH ×2 (09:00→20:48)
[2019-10-19] MEDS: OXCARBAZEPINE 150 MG TABLET PO SCH ×3 (09:00→16:52)
[2019-10-19] MEDS: CLOPIDOGREL 75 MG TABLET PO SCH (09:00)
[2019-10-19] MEDS: FINASTERIDE 5 MG TABLET PO SCH (09:00)
[2019-10-19] MEDS: DOCUSATE SODIUM 100 MG CAPSULE PO SCH ×2 (09:00→16:52)
[2019-10-19] MEDS ORDERED: QUETIAPINE FUMARATE 25 MG TABLET PO SCH (12:00)
--- NOTE | 2019-10-19 12:28 | NUR ---
Received patient in bed. VS stable. Somewhat combative when touched. Easy to arouse. Still refuses to take medications. Dr. Cuellar is aware. Assisted with meals. Patient picked nose and nose bleed. Cleaned patient but was patient continued to strike out at staff. No acute distress noted, monitoring for safety and mood escalation.
[2019-10-19] MEDS: risperiDONE 2 MG TABLET PO SCH ×2 (13:34→16:52)
--- NOTE | 2019-10-19 13:43 | NUR ---
Assisted patient up to chair. Feed self lunch, was able to give afternoon PO medications without difficulty. Continuing to monitor patients labile mood and monitor for safety.
[2019-10-19 15:21] VITALS: BP 148/66
[2019-10-19 20:00] VITALS: BP 151/67
[2019-10-19] MEDS: AMLODIPINE 10 MG TABLET PO SCH (20:48)
[2019-10-19] MEDS: QUETIAPINE FUMARATE 100 MG TABLET PO SCH (20:48)
[2019-10-19] MEDS: CLONIDINE TTS 2 PATCH TD SCH (20:49)
[2019-10-19] MEDS: LORAZEPAM 1 MG TABLET PO PRN (23:08)
--- NOTE | 2019-10-19 23:35 | NUR ---
OOB in gerichair @ beginning of shift.AAOx1-2 Confused and disoriented. Non-compliant with meds. Been spitting the meds. Encouraged to take meds but still refused to take it. Patient getting so restless and wanted to get out of the chair. Ativan 1 mg po given. Patient took it. Assisted back to bed. Will monitor for further behavioral issues. Bed alarm on.
--- NOTE | 2019-10-20 05:52 | NUR ---
patient slept only a few hours. Was trying to get OOB again. OOB in gerichair. Patient very combative. Needs attended. Will monitor patient. Incontinent of urine. Kept clean and dry. VSS. No acute distress noted.
[2019-10-20] MEDS: PANTOPRAZOLE SODIUM 40 MG TABLET.DR PO SCH (06:09)
[2019-10-20] MEDS: LORAZEPAM 1 MG TABLET PO PRN ×2 (06:10→21:50)
[2019-10-20 07:30] VITALS: BP 144/59
[2019-10-20] MEDS: OXCARBAZEPINE 150 MG TABLET PO SCH ×3 (09:19→16:04)
[2019-10-20] MEDS: TAMSULOSIN HCL 0.4 MG CAP.SR.24H PO SCH ×2 (09:19→20:13)
[2019-10-20] MEDS: DOCUSATE SODIUM 100 MG CAPSULE PO SCH ×2 (09:19→16:04)
[2019-10-20] MEDS: risperiDONE 2 MG TABLET PO SCH ×2 (09:19→16:04)
[2019-10-20] MEDS: CLOPIDOGREL 75 MG TABLET PO SCH (09:19)
[2019-10-20] MEDS: FINASTERIDE 5 MG TABLET PO SCH (09:21)
[2019-10-20] MEDS ORDERED: diphenhydrAMINE 50 MG CAPSULE PO PRN (09:30)
[2019-10-20 15:05] VITALS: BP 157/67
--- NOTE | 2019-10-20 17:51 | NUR ---
GPS: patient on reymundo chair , took afternoon nap, compliant with medication, assisted with ADL,
[2019-10-20] MEDS: AMLODIPINE 10 MG TABLET PO SCH (20:04)
[2019-10-20] MEDS: QUETIAPINE FUMARATE 100 MG TABLET PO SCH (20:04)
[2019-10-20 20:14] VITALS: BP 163/76
--- NOTE | 2019-10-20 23:09 | NUR ---
RECEIVED PATIENT IN THE HALLWAY SITTING IN A JYOTI CHAIR CLOSE TO THE NURSING STATION. HE IS NOTED A/O X1, CONFUSED AND RESTLESS; SPEECH IS DISORGANIZED, AND ILLOGICAL. MOOD IS LABILE, AFFECT IS FLAT. PATIENT REQUIRED MULTIPLE REDIRECTION AND REORIENTATION. ABLE TO COMPLY WITH MEDICATION REGIMENT AT THIS TIME. HE WAS GIVEN ATIVAN 1MG PO PRN FOR ANXIETY. V/S STABLE. PATIENT IS REASSURED FOR HIS SAFETY, SAFETY AND FALL PRECAUTION IN PLACE. WILL CONTINUE TO MONITOR.
[2019-10-21] MEDS: PANTOPRAZOLE SODIUM 40 MG TABLET.DR PO SCH (06:40)
[2019-10-21 08:00] VITALS: BP 148/57
[2019-10-21] MEDS: CLOPIDOGREL 75 MG TABLET PO SCH (09:22)
[2019-10-21] MEDS: FINASTERIDE 5 MG TABLET PO SCH (09:22)
[2019-10-21] MEDS: risperiDONE 2 MG TABLET PO SCH ×2 (09:22→16:38)
[2019-10-21] MEDS: OXCARBAZEPINE 150 MG TABLET PO SCH ×3 (09:22→16:40)
[2019-10-21] MEDS: DOCUSATE SODIUM 100 MG CAPSULE PO SCH ×2 (09:22→16:38)
[2019-10-21] MEDS: TAMSULOSIN HCL 0.4 MG CAP.SR.24H PO SCH ×2 (09:22→20:16)
[2019-10-21 15:00] VITALS: BP 135/58
[2019-10-21 20:11] VITALS: BP 160/71
[2019-10-21] MEDS: QUETIAPINE FUMARATE 100 MG TABLET PO SCH (20:16)
[2019-10-21] MEDS: AMLODIPINE 10 MG TABLET PO SCH (20:17)
[2019-10-21 20:45] VITALS: BP 138/66
[2019-10-22] MEDS: LORAZEPAM 1 MG TABLET PO PRN (03:44)
--- NOTE | 2019-10-22 03:46 | NUR ---
GPS: PATIENT IS AGITATED. PUSHING STAFF. ATIVAN 1 MG PO GIVEN.
--- NOTE | 2019-10-22 04:46 | NUR ---
patient is calm now. resting quietly. prn effective for agitation.
[2019-10-22] MEDS: PANTOPRAZOLE SODIUM 40 MG TABLET.DR PO SCH (06:01)
--- NOTE | 2019-10-22 06:14 | NUR ---
GPS: Remain uncooperative with care. Slept 2:30 hrs only throughout the night. No acute distress noted. Continent of bowel and bladder. No agitation nor any behavioral issues noted. Will monitor patient.
[2019-10-22 07:30] VITALS: BP 127/55
[2019-10-22] MEDS: DOCUSATE SODIUM 100 MG CAPSULE PO SCH ×2 (09:00→17:00)
[2019-10-22] MEDS: TAMSULOSIN HCL 0.4 MG CAP.SR.24H PO SCH ×2 (09:00→20:17)
[2019-10-22] MEDS: CLOPIDOGREL 75 MG TABLET PO SCH (09:00)
[2019-10-22] MEDS: OXCARBAZEPINE 150 MG TABLET PO SCH ×3 (09:00→17:38)
[2019-10-22] MEDS: risperiDONE 2 MG TABLET PO SCH ×2 (09:00→17:38)
[2019-10-22] MEDS: FINASTERIDE 5 MG TABLET PO SCH (09:00)
--- NOTE | 2019-10-22 12:06 | NUR ---
Received patient in bed asleep . Am medications held at this time till patient wakes up and becomes more alert. VS are stable. No distress. Patient noted to have slept only 2 hours last night.
[2019-10-22 15:49] VITALS: BP 125/93
[2019-10-22 20:00] VITALS: BP 145/63
[2019-10-22] MEDS: QUETIAPINE FUMARATE 100 MG TABLET PO SCH (20:16)
[2019-10-22] MEDS: AMLODIPINE 10 MG TABLET PO SCH (20:17)
[2019-10-23] MEDS: PANTOPRAZOLE SODIUM 40 MG TABLET.DR PO SCH (06:13)
--- NOTE | 2019-10-23 06:49 | NUR ---
GPS: Remain uncooperative with care. Slept 7:15 hrs throughout the night. No acute distress noted. Continent of bowel and bladder. No agitation nor any behavioral issues noted. Will monitor patient.
[2019-10-23 07:30] VITALS: BP 129/47
[2019-10-23] MEDS: DOCUSATE SODIUM 100 MG CAPSULE PO SCH ×2 (09:23→17:07)
[2019-10-23] MEDS: CLOPIDOGREL 75 MG TABLET PO SCH (09:24)
[2019-10-23] MEDS: TAMSULOSIN HCL 0.4 MG CAP.SR.24H PO SCH ×2 (09:24→20:27)
[2019-10-23] MEDS: OXCARBAZEPINE 150 MG TABLET PO SCH ×3 (09:24→17:07)
[2019-10-23] MEDS: risperiDONE 2 MG TABLET PO SCH ×2 (09:24→17:07)
[2019-10-23] MEDS: FINASTERIDE 5 MG TABLET PO SCH (09:25)
--- NOTE | 2019-10-23 11:00 | NUR ---
Social Work Individual Therapy: cabin worker met with patient for brief counseling to address patients aggressive and combative behavior. Patient is uncooperative and is unable to have a meaningful conversation due to being aggressive towards the staff. This senior technical writer was unable to conduct individual therapy and attempt again.
--- NOTE | 2019-10-23 11:56 | NUR ---
Social Work Family Contact Note: venetian blind worker spoke with sister in law Liz ([phone]) and discussed patients discharge day and stated that patient will return back to [facility]. Per Liz, she agreed.
--- NOTE | 2019-10-23 15:28 | NUR ---
Social Work Firearms Report: Marketing Associate completed and submitted a [employer] firearms report for 5250 grave disability certification. A copy of report has been placed in patient chart.
[2019-10-23 15:39] VITALS: BP 128/56
--- NOTE | 2019-10-23 18:55 | NUR ---
NO DISTRESS NOTED, PATIENT IS COMPLIANT WITH MEDICATION, AND CARE, NO AGITATION NOTED
--- NOTE | 2019-10-23 20:00 | NUR ---
received patient in the hallway sitting in a erma chair close to the nursing station. he is noted A/O x1, unable to have a meaningful conversation. patient noted with blunted affect, low mood, (crying at times) labile, restless at time but easily redirectable. v/s stable at this time. fall and safety precaution in place. will continue to monitor.
[2019-10-23] MEDS: QUETIAPINE FUMARATE 100 MG TABLET PO SCH (20:27)
[2019-10-23] MEDS: AMLODIPINE 10 MG TABLET PO SCH (20:27)
[2019-10-23 20:34] VITALS: BP 147/68
[2019-10-24] MEDS: PANTOPRAZOLE SODIUM 40 MG TABLET.DR PO SCH (06:46)
--- NOTE | 2019-10-24 08:03 | NUR ---
Social Work Discharge Note: Patient will be discharged to [facility] to [facility] [address] [place] [address]; ) via Ambulance transportation at 12PM. Amusement Park Ride Mechanic spoke with MARY, Bag Loader at [facility]; ([phone]), who stated patient will be accepted at facility today. Patient is alert and oriented x1-2, and is not able to plan for self-care at this time, but is willing to accept care provided for her at the facility. Patient denies any suicidal or homicidal ideations. Patient is aware and agreeable with discharge plans. Patients sister in law, Liz ([phone]) is aware and agreeable with discharge plans. Patient will continue to follow-up with her Psychiatrist Dr. Cuellar and Supervisor Cigar Processing Dr. Hughes at [facility] [address] [place] [address]; ). Patient will follow-up at the center. Patient presents with euthymic mood and congruent affect.
[2019-10-24] MEDS: risperiDONE 2 MG TABLET PO SCH (08:51)
[2019-10-24] MEDS: OXCARBAZEPINE 150 MG TABLET PO SCH ×2 (08:51→13:00)
[2019-10-24] MEDS: DOCUSATE SODIUM 100 MG CAPSULE PO SCH (08:51)
[2019-10-24] MEDS: TAMSULOSIN HCL 0.4 MG CAP.SR.24H PO SCH (08:51)
[2019-10-24] MEDS: CLOPIDOGREL 75 MG TABLET PO SCH (08:51)
[2019-10-24] MEDS: FINASTERIDE 5 MG TABLET PO SCH (08:51)
[2019-10-24 13:09] VITALS: BP 118/78
--- NOTE | 2019-10-24 13:43 | NUR ---
Patient will be discharged to [facility] facility to [facility] [address] [place] [address]; ) via Ambulance transportation at 1 PM. Patient is alert and oriented x1-2, and is not able to plan for self-care at this time, but is willing to accept care provided for her at the facility. Patient denies any suicidal or homicidal ideations. Patient is aware and agreeable with discharge plans. Patient will continue to follow-up with her Psychiatrist Dr. Cuellar and Power Plant Technician Dr. Hughes at [facility] [address] [place] [address]; ). Patient presents with euthymic mood and congruent affect. Discharge documents provided. Called facility for report but went to voice mail. Will call back in 5 minutes
--- NOTE | 2019-10-24 14:03 | NUR ---
Report called to the facility and given to Negrita
== END 2019-10-24 14:15 | DRG 885 ==
LOC: ER 16:28 → GPS 22:11
PROVIDERS: ADMIT Psychiatry & Neurology Psychiatry; ATTEND Internal Medicine
DX: F31.2 Bipolar disorder, current episode manic severe with psychotic features (principal); F03.91 Unspecified dementia, unspecified severity, with behavioral disturbance; E44.1 Mild protein-calorie malnutrition; K21.9 Gastro-esophageal reflux disease without esophagitis; E78.5 Hyperlipidemia, unspecified; Z86.73 Personal history of transient ischemic attack (TIA), and cerebral infarction without residual deficits; N40.0 Benign prostatic hyperplasia without lower urinary tract symptoms; Z79.02 Long term (current) use of antithrombotics/antiplatelets; Z91.19 Patient's noncompliance with other medical treatment and regimen; I10 Essential (primary) hypertension; E86.0 Dehydration; R73.03 Prediabetes
CPT/HCPCS: 36415; 80307; 85025; 93005; A4663; G0480; G0480-TC; J1200; J1630; J2060; J2358